=== PATIENT | male | born 1940 | race Caucasian/White ===

== ENCOUNTER 2017-03-23 16:55 | Emergency (ER) | payer MEDICARE, OTHER ==
[2017-03-23 18:45] LABS: BASOPHILS 0.4 % (0-2); EOSINOPHILS 2.3 % (0-7); HEMATOCRIT 38.5 % (42.0-54.0); HEMOGLOBIN 12.8 g/dL (13.5-17.5); IMMATURE GRANULOCYTES 0.3 % (0-5); LYMPHOCYTES 24.3 % (15-50); MCHC 33.2 g/dL (31.0-37.0); MCV 93.2 fL (80.0-100.0); MEAN PLATELET VOLUME 9.7 fL (7.4-10.4); NEUTROPHILS 63.7 % (40-80); PLATELET COUNT 169 10x3/uL (130-400); RBC 4.13 10x6/uL (4.20-6.10); RDW 15.1 % (11.5-14.5); WBC 9.2 10x3/uL (4.8-10.8)
[2017-03-23 19:07] LABS: INR 1.63 (0.85-1.17); PROTIME 19.3 SECONDS (11.6-15.0)
[2017-03-23 19:08] LABS: APTT 34.2 SECONDS (22.8-39.4)
[2017-03-23 19:15] LABS: ALBUMIN 3.7 g/dL (3.4-5.0); ANION GAP 12.7 mmol/L (8-16); BILIRUBIN - TOTAL 0.68 mg/dL (0.2-1.3); CALCIUM 8.9 mg/dL (8.5-10.1); CARBON DIOXIDE 29.8 mmol/L (21.0-32.0); CREATININE - SERUM 2.5 mg/dL (0.6-1.3); POTASSIUM - SERUM 3.5 mmol/L (3.5-5.1); PROTEIN - SERUM 7.2 g/dL (6.4-8.2)
[2017-03-23 20:31] LABS: APPEARANCE CLEAR (CLEAR); BILIRUBIN NEGATIVE (NEGATIVE); COLOR YELLOW (YELLOW); GLUCOSE NEGATIVE (NEGATIVE); KETONE NEGATIVE (NEGATIVE); LEUKOCYTE ESTERASE NEGATIVE (NEGATIVE); NITRITE NEGATIVE (NEGATIVE); PROTEIN TRACE mg/dL (NEGATIVE); UROBILINOGEN NORMAL (NORMAL)
== END 2017-03-23 21:40 | disposition home or self-care (01) ==
LOC: D.ER 16:55
PROVIDERS: Emergency Medicine; Nurse Practitioner Family
DX: M79.671 Pain in right foot (principal); Z79.01 Long term (current) use of anticoagulants; S70.11XA Contusion of right thigh, initial encounter; X58.XXXA Exposure to other specified factors, initial encounter; Y93.89 Activity, other specified; Y92.89 Other specified places as the place of occurrence of the external cause; R79.89 Other specified abnormal findings of blood chemistry; Z95.0 Presence of cardiac pacemaker; I10 Essential (primary) hypertension; E11.9 Type 2 diabetes mellitus without complications; Z79.4 Long term (current) use of insulin